=== PATIENT | male | born 1985 ===

== ENCOUNTER 2017-08-28 18:37 | Emergency (ER) | payer MEDICAID ==
[~2017-08-28] VITALS: Ht 160 cm; Wt 88.9 kg
[2017-08-28 18:51] VITALS: Ht 160 cm; Wt 88.9 kg
[2017-08-28 21:55] VITALS: BP 143/84
== END 2017-08-28 21:55 | disposition home or self-care (01) ==
LOC: ED 18:37
DX: T78.40XA Allergy, unspecified, initial encounter (principal); E78.5 Hyperlipidemia, unspecified; X58.XXXA Exposure to other specified factors, initial encounter
CPT/HCPCS: J1200; J2930; J3490